=== PATIENT | male | born 1980 | race African-American/Black ===

== ENCOUNTER 2021-09-30 15:03 | Observation (INO) | payer OTHER ==
[2021-09-30] MEDS ORDERED: HYDROmorphone 0.5 MG/0.5 ML SYRINGE ONE (15:39)
[2021-09-30 15:58] LABS: #Eosinphils 0.1 thou/uL (0.0-0.7); #Lymphocytes 0.9 thou/uL (1.20-3.40); #Monocytes 0.6 thou/uL (0.11-0.59); #Neutrophils 4.1 thou/uL (1.40-6.50); %Basophils 0.7 % (0.0-1.0); %Lymphocytes 16.1 % (21.0-51.0); %Neutrophils 71.2 % (42.0-75.0); Hemoglobin 16.8 g/dL (14.0-18.0); Mean Corpuscular HGB CONC 32.8 g/dL (32.0-36.0); Platelet Count 232 thou/uL (130-400); RBC Distribution Width 12.3 % (11.5-14.5); Red Blood Cell (RBC) Count 4.92 mill/uL (4.70-6.10); White Blood Cell (WBC) Count 5.8 thou/uL (4.8-10.8)
[2021-09-30 16:02] LABS: Reticulocyte Count 3.4 % (0.5-1.5)
[2021-09-30] MEDS ORDERED: SODIUM CHLORIDE 0.9% SC SCH (16:15)
[2021-09-30] MEDS ORDERED: PHENYLEPHRINE SC SCH (16:15)
[2021-09-30 16:35] LABS: ALT (SGPT) 21 U/L (8-55); AST (SGOT) 24 U/L (5-34); Acetaminophen Less than 10.0 mcg/mL (10.0-30.0); Albumin 4.7 g/dL (3.5-5.0); Alcohol Less than 10 mg/dL (Less than 10); Alkaline Phosphatase 76 U/L (40-110); Anion Gap 19 mmol/L (10-20); BUN (Urea Nitrogen) 6 mg/dL (8.9-20.6); Bilirubin, Total 0.4 mg/dL (0.2-1.2); Calc. Creatinine Clearance 0 mL/min (70-130); Calcium 9.7 mg/dL (7.8-10.44); Carbon Dioxide 20 mmol/L (22-29); Chloride 105 mmol/L (98-107); Estimated GFR 96; Globulin 3.5 g/dL (2.4-3.5); Glucose 96 mg/dL (70-105); Potassium 4.3 mmol/L (3.5-5.1); Protein, Total 8.2 g/dL (6.0-8.3); Salicylate Less than 8.0 mg/dL (15.0-30.0); Sodium 140 mmol/L (136-145)
[2021-09-30] MEDS ORDERED: Midazolam HCl 2 mg/2 ml Vial ONE (16:51)
[2021-09-30] MEDS ORDERED: Terbutaline Sulfate 1 MG/ML VIAL ONE (20:05)
[2021-09-30] MEDS ORDERED: Bupivacaine 0.25% 10 ML VIAL ONE (20:11)
[2021-09-30] MEDS ORDERED: Phenylephrine 10 MG/ML VIAL FS SCH (20:30)
[2021-09-30] MEDS ORDERED: hydrALAZINE 20 MG/ML VIAL ONE (21:09)
[2021-09-30] MEDS ORDERED: hydrALAZINE 20 MG/ML VIAL SLOW IVP PRN (21:34)
[2021-09-30] MEDS ORDERED: Mag-Al 1200 mg/1200 mg/30 ML UDCUP PO PRN (21:34)
[2021-09-30] MEDS ORDERED: diphenhydrAMINE 25 MG CAP PO PRN (21:34)
[2021-09-30] MEDS ORDERED: Ondansetron PF 4 MG/2 ML Vial IVP PRN (21:34)
[2021-09-30] MEDS ORDERED: Morphine 2 MG/ML VIAL SLOW IVP PRN (21:34)
[2021-09-30] MEDS ORDERED: Acetaminophen 500 MG TAB PO PRN (21:34)
[2021-09-30] MEDS ORDERED: Albuterol 200 PUFF (6.7GM INHALER) INH PRN (21:37)
[2021-09-30 23:20] VITALS: BMI 31.8
[2021-09-30] MEDS ORDERED: traMADol HCl 50 MG TAB PO PRN (23:32)
[2021-09-30] MEDS ORDERED: Ibuprofen 600 MG TAB PO PRN (23:32)
[2021-10-01 12:17] VITALS: BP 155/59; TEMP 98.4
== END 2021-10-01 13:00 | disposition home or self-care (01) ==
LOC: ERS 15:03 → T4-B 21:39
PROVIDERS: ADMIT Urology; ATTEND Urology
DX: N48.39 Other priapism (principal); J45.909 Unspecified asthma, uncomplicated; F17.210 Nicotine dependence, cigarettes, uncomplicated; Z79.899 Other long term (current) drug therapy; Z88.6 Allergy status to analgesic agent; Z20.822 Contact with and (suspected) exposure to COVID-19
CPT/HCPCS: 36415; 80053; 80307; 82550; 85025; 85046; G0378; J0360; J1170; J2250; J2370; J3105; S0020; U0003; U0005